=== PATIENT | male | born 1960 | race African-American/Black ===

== ENCOUNTER 2017-01-02 16:43 | Emergency (ER) | payer MEDICAID ==
[~2017-01-02] VITALS: Ht 167.6 cm; Wt 70.0 kg
[~2017-01-02 16:43] MED LIST: VIC
[2017-01-02] MEDS ORDERED: MORPHINE SULFATE 10 MG/ML CPJ IM ONE (18:45)
[2017-01-02] MEDS ORDERED: ONDANSETRON 4MG ODT PO ONE (18:45)
[2017-01-02] MEDS ORDERED: MORPHINE SULFATE 4 MG/ML CPJ (NOT FOR IM USE) IV ONE (20:30)
[2017-01-02 21:40] VITALS: BP 146/98
== END 2017-01-02 22:18 | disposition home or self-care (01) ==
LOC: ER 18:08
DX: M54.5 Low back pain (principal); E78.00 Pure hypercholesterolemia, unspecified; I10 Essential (primary) hypertension; Z98.890 Other specified postprocedural states
CPT/HCPCS: 96372; 96374; 99284; J2270; Q0162; Z7610